=== PATIENT | female | born 1995 | race American Indian/Alaskan Native ===

== ENCOUNTER 2017-03-16 14:07 | Emergency (ER) | payer MEDICAID ==
[2017-03-16 14:51] LABS: Basophils % (Auto) 0.2 % (0.0-1.8); Eosinophils % (Auto) 2.3 % (0.0-4.3); Hematocrit 39.3 % (30.3-42.9); Hemoglobin 12.7 gm/dl (10.1-14.3); Mean Corpuscular HGB Conc 32 % (30-34); Mean Corpuscular Hemoglobin 27 pg (28-32); Mean Corpuscular Volume 82 fl (79-97); Platelet Count 314 K/mm3 (140-440); Red Blood Count 4.78 M/mm3 (3.65-5.03); Red Cell Distribution Width 13.9 % (13.2-15.2); White Blood Count 11.9 K/mm3 (4.5-11.0)
[2017-03-16 14:58] LABS: Alanine Aminotransferase 16 units/L (7-56); Albumin/Globulin Ratio 1.4 %; Alkaline Phosphatase 64 units/L (35-129); Anion Gap 17 mmol/L; Blood Urea Nitrogen 7 mg/dL (7-17); Carbon Dioxide 23 mmol/L (22-30); Chloride 98.6 mmol/L (98-107); Glucose 74 mg/dL (65-100); Lipase 29 units/L (13-60); Potassium 4.1 mmol/L (3.6-5.0); Sodium 134 mmol/L (137-145); Total Protein 6.9 g/dL (6.3-8.2)
[2017-03-16] MEDS ORDERED: ZOFRAN IV ONE (15:02)
[2017-03-16] MEDS ORDERED: NACL 0.9% 1000 ML 1,000 ML IV ONE (15:02)
[2017-03-16] MEDS ORDERED: NORCO 5/325 PO ONE (15:03)
--- NOTE | 2017-03-16 17:41 | Emergency Department Report ---
HPI - General Chief Complaint: Nausea/Vomiting/Diarrhea Time Seen by Provider: 03/16/17 15:01 - HPI HPI: The patient is 21-year-old female , EGA 9 weeks, who presents for evaluation of headache and recurrent vomiting. The patient reports nausea and vomiting for the past 2 weeks, worse in the mornings, severe, improved with lying down. She states that her headache has been present for the past one day , mild in severity, aching in quality, constant, consistent with previous migraines. The patient denies fever, head injury, neck pain, neck stiffness, chest pain, dyspnea, abdominal pain, present discharge, vaginal bleeding, trauma to the abdomen, vision or hearing changes, smell or taste changes, paresthesias, facial drooping, slurred speech, seizure-like activity, urine or bowel incontinence or retention, or other focal neurological deficit. ED Past Medical Hx - Past Medical History Previous Medical History?: No - Surgical History Past Surgical History?: Yes Additional Surgical History: d&c - Social History Smoking Status: Never Smoker Substance Use Type: None - Medications Home Medications: Home Medications Medication Instructions Recorded Confirmed Last Taken Type Ibuprofen [Motrin 800 MG tab] 800 mg PO TID PRN #30 tablet 02/11/15 Unknown Rx methOCARBAMOL [Robaxin] 500 mg PO BID PRN #20 tab 02/11/15 Unknown Rx traMADol [Ultram 50 MG tab] 50 mg PO Q6HR PRN #12 tablet 02/11/15 Unknown Rx Ondansetron [Zofran Odt] 4 mg PO Q8HR #20 tab.rapdis 03/16/17 Unknown Rx ED Review of Systems ROS: Stated complaint: 8 WKS /DEHYDRATED/VOMITING/ Other details as noted in HPI Constitutional: denies: fever ENT: denies: throat or neck pain Respiratory: denies: cough, shortness of breath Cardiovascular: denies: chest pain Endocrine: denies unexplained weight loss or gain Gastrointestinal: denies: abdominal pain reports nausea & vomiting Genitourinary: denies: dysuria Musculoskeletal: denies: leg swelling Skin: denies: rash Neurological: reports headache Hematological/Lymphatic: denies: easy bleeding or easy bruising Psych: denies sadness or hopelessness Physical Exam - Physical Exam Vital Signs: Vital Signs 03/16/17 14:16 Temperature 98.8 F Pulse Rate 99 H Respiratory 18 Rate Blood Pressure 107/79 O2 Sat by Pulse 100 Oximetry Physical Exam: General: well-nourished, well-developed, no acute distress Head: Normocephalic, atraumatic Eyes: normal sclera, EOMI, PERRLA ENT: Mucous membranes are pale and dry Neck: No neck stiffness, no cervical adenopathy Respiratory: Breath sounds equal bilaterally, no wheezing, rales, or rhonchi Cardio: S1 and S2 present, no murmurs, rubs, gallops, capillary refill is delayed Abdomen: Normoactive bowel sounds, soft abdomen, no rigidity, no guarding or rebound tenderness Musc: No pitting edema Skin: No rash Neuro: no facial drooping, normal speech, alert oriented 3, no sensation or motor deficits, reflexes 2+ symmetric on DTR testing, no Formoso deficit with finger to nose and heel [place] testing, Romberg negative, normal neuro exam Psych: Normal affect ED Course Vital Signs 03/16/17 14:16 Temperature 98.8 F Pulse Rate 99 H Respiratory 18 Rate Blood Pressure 107/79 O2 Sat by Pulse 100 Oximetry ED Medical Decision Making - Lab Data Result diagrams: 03/16/17 14:22 03/16/17 14:22 - Medical Decision Making The patient was seen and examined by myself. The patient is placed on a executive staff assistant and continuous pulse ox. On initial evaluation, the patient was found to be in no distress. Evaluation orders were placed. The patient is given 1 L normal saline fluid bolus for treatment of dehydration and IV Zofran for treatment of nausea. Lab results reveal elevated hCG level, and otherwise labs were grossly unremarkable. Her son the pelvis reveals mild and she reported she had not weeks EGA. The patient was reevaluated and reported that their symptoms were markedly improved. The patient is stable for discharge with outpatient follow-up. The patient is given follow-up and return instructions. The patient expressed understanding and agreed with the plan. The patient is discharged in stable condition. Critical care attestation.: If time is entered above; I have spent that time in minutes in the direct care of this critically ill patient, excluding procedure time. ED Disposition Clinical Impression: Dehydration, Nausea and vomiting during Acute nonintractable headache Qualifiers: Headache type: unspecified Qualified Code(s): R51 - Headache Disposition: DC- TO HOME OR SELFCARE Is pt being admited?: No Does the pt Need Aspirin: No Condition: Stable Instructions: Morning Sickness (ED), Dehydration (ED), Acute Headache (ED) Prescriptions: Ondansetron [Zofran Odt] 4 mg PO Q8HR #20 tab.shaun Referrals: [facility] [Provider Group] - 3-5 Days Time of Disposition: 17:37
[2017-03-16] MEDS ORDERED: ZOFRAN ONE (17:57)
--- NOTE | 2017-03-16 17:58 | Ultrasound Report ---
FINAL REPORT EXAM: US OB \T\lt; = 14 WEEKS FETUS HISTORY: vomiting, TECHNIQUE: Ultrasound obstetrical transabdominal PRIORS: None. FINDINGS: There is gestational sac present within the uterus. pole is identified with crown-rump length 2.3 centimeters corresponding to estimated gestational age of 9 weeks 0 days with estimated date of delivery October 19, 2017 cardiac activity is present with heart rate of 168 beats per minute Right ovary is 4.5 x 2.8 x 2.8 centimeters. There is an echogenic focus within the right ovary 2.8 centimeters could be hemorrhagic cyst. Left ovary is 3.0 x 1.2 x 2.4 centimeters no free fluid identified within the cul-de-sac. IMPRESSION: Single live intrauterine gestation estimated at 9 weeks 0 days Hyperechoic structure right ovary could be complex cyst. Continued followup recommended.
--- NOTE | 2017-03-16 18:00 | Ultrasound Report ---
FINAL REPORT EXAM: US OB TRANSVAGINAL HISTORY: vomiting, TECHNIQUE: Ultrasound obstetrical transvaginal PRIORS: None. FINDINGS: There is gestational sac present within the uterus. pole is identified with crown-rump length 2.3 centimeters corresponding to estimated gestational age of 9 weeks 0 days with estimated date of delivery October 19, 2017 cardiac activity is present with heart rate of 168 beats per minute Right ovary is 4.5 x 2.8 x 2.8 centimeters. There is an echogenic focus within the right ovary 2.8 centimeters could be hemorrhagic cyst. Left ovary is 3.0 x 1.2 x 2.4 centimeters no free fluid identified within the cul-de-sac. IMPRESSION: Single live intrauterine gestation estimated at 9 weeks 0 days Hyperechoic structure right ovary could be complex cyst. Continued followup recommended.
[2017-03-16] MEDS ORDERED: NORCO 5/325 ONE (18:01)
[2017-03-16 18:42] VITALS: BP 98/45
== END 2017-03-16 18:42 | disposition home or self-care (01) ==
LOC: ED 14:07
DX: O21.9 Vomiting of pregnancy, unspecified (principal); O26.891 Other specified pregnancy related conditions, first trimester; E86.0 Dehydration; R51 Headache; Z3A.09 9 weeks gestation of pregnancy; Z98.890 Other specified postprocedural states
CPT/HCPCS: 36415; 76801; 76817; 80053; 83690; 84702; 85025; 96361; 96374; 99284; J2405; J7030